=== PATIENT | female | born 1945 | race Native Hawaiian/Other Pacific Islander ===

== ENCOUNTER 2017-10-28 06:28 | Day surgery (SDC) | payer OTHER ==
[2017-10-28] MEDS ORDERED: BALANCED SALT IRRIG SOLN COMB1 500 ML, GENTAMICIN SULFATE INJ 4 MG, EPINEPHRINE-PF 1:10... IO ONE ×3 (07:00)
[2017-10-28] MEDS ORDERED: CIPROFLOXACIN 0.3% OPHT DROP 2.5 ML BOTTLE ONE (07:36)
[2017-10-28] MEDS ORDERED: FLURBIPROFEN 0.03% OPHT DROP 2.5 ML BOTTLE ONE (07:36)
[2017-10-28] MEDS ORDERED: CYCLOPENTOLATE 1% OPHT DROP 2 ML BOTTLE ONE (07:37)
[2017-10-28] MEDS ORDERED: TROPICAMIDE 1% OPHT DROP 3 ML BOTTLE ONE (07:38)
[2017-10-28] MEDS ORDERED: PHENYLEPHRINE 2.5% OPHT DROP 2 ML BOTTLE ONE (07:38)
[2017-10-28] MEDS ORDERED: EPINEPHRINE 1 MG/1 ML AMP ONE (07:47)
[2017-10-28] MEDS ORDERED: LIDOCAINE-MPF 2% 5 ML VIAL ONE (07:47)
[2017-10-28] MEDS ORDERED: TIMOLOL MALEATE 0.5% OPHT DROP 5 ML BOTTLE ONE (07:47)
[2017-10-28] MEDS ORDERED: TETRACAINE HCL 0.5% OPHT DROP 2 ML BOTTLE ONE (07:47)
[2017-10-28] MEDS ORDERED: LIDOCAINE HCL-MPF 1% 5 ML VIAL ONE (07:47)
[2017-10-28] MEDS ORDERED: MOXIFLOXACIN HCL 3 ML OPHT DROPS ONE (07:47)
[2017-10-28] MEDS ORDERED: NEO/POLYMYX B/DEXAME OPHT OINT 3.5 GM TUBE ONE (07:47)
[2017-10-28] MEDS ORDERED: HYALURONATE SODIUM 12.8 MG/0.8 ML DISP.SYRIN ONE (07:48)
[2017-10-28] MEDS ORDERED: BALANCED SALT IRRIG SOLN COMB2 15 ML IRRIG.SOLN ONE (07:48)
[2017-10-28] MEDS ORDERED: HYALURONATE SODIUM 8.5 MG/0.85 ML DISP.SYRIN ONE (07:48)
[2017-10-28] MEDS ORDERED: HYALURONIDASE,OVINE 200 UNITS/ML VIAL ONE (07:48)
[2017-10-28] MEDS ORDERED: ACETYLCHOLINE CHLORIDE 1% OPHT 1 EA KIT ONE (07:48)
[2017-10-28] MEDS ORDERED: BUPIVACAINE PF 0.5% 30 ML VIAL ONE (07:48)
[2017-10-28] MEDS ORDERED: NALOXONE HCL 0.4 MG/ML AMPUL MC ONE (08:05)
[2017-10-28] MEDS ORDERED: LABETALOL HCL 100 MG/20 ML VIAL MC ONE (08:05)
[2017-10-28] MEDS ORDERED: IV NORMAL SALINE 1000 ML BAG IV ONE (08:05)
[2017-10-28] MEDS ORDERED: ONDANSETRON 4 MG/2 ML VIAL IV ONE (08:05)
[2017-10-28] MEDS ORDERED: FENTANYL CITRATE 100 MCG/2 ML AMPUL ONE (08:25)
[2017-10-28] MEDS ORDERED: BALANCED SALT IRRIG SOLN COMB1 0 ML ONE (09:04)
[2017-10-28] MEDS ORDERED: METOCLOPRAMIDE HCL 10 MG/2 ML VIAL ONE (09:26)
[2017-10-28] MEDS ORDERED: ONDANSETRON 4 MG/2 ML VIAL ONE (09:28)
== END 2017-10-28 10:30 | disposition home or self-care (01) ==
LOC: DS 06:28
PROVIDERS: ATTEND Ophthalmology
DX: E11.36 Type 2 diabetes mellitus with diabetic cataract (principal); E78.5 Hyperlipidemia, unspecified; E11.42 Type 2 diabetes mellitus with diabetic polyneuropathy; I10 Essential (primary) hypertension; Z79.899 Other long term (current) drug therapy
CPT/HCPCS: 71045; A4663; J0171; J1580; J2310; J2405; J2765; J3010; J3471; J3490; J7030; J7321; V2632

== ENCOUNTER 2018-04-07 06:00 | Day surgery (SDC) | payer OTHER, MEDICARE ==
[2018-04-07] MEDS ORDERED: FLURBIPROFEN 0.03% OPHT DROP 2.5 ML BOTTLE ONE (06:39)
[2018-04-07] MEDS ORDERED: CIPROFLOXACIN 0.3% OPHT DROP 2.5 ML BOTTLE ONE (06:39)
[2018-04-07] MEDS ORDERED: CYCLOPENTOLATE 1% OPHT DROP 2 ML BOTTLE ONE (06:39)
[2018-04-07] MEDS ORDERED: PHENYLEPHRINE 2.5% OPHT DROP 2 ML BOTTLE ONE (06:40)
[2018-04-07] MEDS ORDERED: TROPICAMIDE 1% OPHT DROP 3 ML BOTTLE ONE (06:40)
[2018-04-07] MEDS ORDERED: BALANCED SALT IRRIG SOLN COMB1 500 ML, EPINEPHRINE-PF 1:1000 0.5 MG IO ONE ×2 (07:00)
[2018-04-07] MEDS ORDERED: NEO/POLYMYX B/DEXAME OPHT OINT 3.5 GM TUBE ONE (07:05)
[2018-04-07] MEDS ORDERED: TIMOLOL MALEATE 0.5% OPHT DROP 5 ML BOTTLE ONE (07:05)
[2018-04-07] MEDS ORDERED: LIDOCAINE-MPF 2% 5 ML VIAL ONE (07:05)
[2018-04-07] MEDS ORDERED: TETRACAINE HCL 0.5% OPHT DROP 2 ML BOTTLE ONE (07:05)
[2018-04-07] MEDS ORDERED: MOXIFLOXACIN HCL 3 ML OPHT DROPS ONE (07:05)
[2018-04-07] MEDS ORDERED: BUPIVACAINE PF 0.5% 30 ML VIAL ONE (07:06)
[2018-04-07] MEDS ORDERED: BALANCED SALT IRRIG SOLN COMB2 15 ML IRRIG.SOLN ONE (07:06)
[2018-04-07] MEDS ORDERED: HYALURONIDASE,OVINE 200 UNITS/ML VIAL ONE (07:06)
[2018-04-07] MEDS ORDERED: HYALURONATE SODIUM 12.8 MG/0.8 ML DISP.SYRIN ONE (07:06)
[2018-04-07] MEDS ORDERED: HYALURONATE SODIUM 8.5 MG/0.85 ML DISP.SYRIN ONE (07:06)
[2018-04-07] MEDS ORDERED: ACETYLCHOLINE CHLORIDE 1% OPHT 1 EA KIT ONE (07:06)
[2018-04-07] MEDS ORDERED: BALANCED SALT IRRIG SOLN COMB1 500 ML ONE (07:30)
[2018-04-07] MEDS ORDERED: ONDANSETRON 4 MG/2 ML VIAL IV ONE (08:15)
[2018-04-07] MEDS ORDERED: SUCCINYLCHOLINE CHLORIDE 200 MG/10 ML VIAL ONE (08:25)
[2018-04-07] MEDS ORDERED: FENTANYL CITRATE 100 MCG/2 ML AMPUL ONE (08:25)
[2018-04-07] MEDS ORDERED: ONDANSETRON 4 MG/2 ML VIAL ONE (09:48)
== END 2018-04-07 10:25 | disposition home or self-care (01) ==
LOC: DS 06:00
PROVIDERS: ATTEND Ophthalmology
DX: E11.36 Type 2 diabetes mellitus with diabetic cataract (principal); E78.1 Pure hyperglyceridemia; I10 Essential (primary) hypertension; Z90.710 Acquired absence of both cervix and uterus; Z79.899 Other long term (current) drug therapy; Z79.4 Long term (current) use of insulin; Z79.84 Long term (current) use of oral hypoglycemic drugs
CPT/HCPCS: A4663; J0171; J0330; J2405; J3010; J3471; J3490; J7030; J7321; V2632